=== PATIENT | female | born 1935 | race Caucasian/White ===

== ENCOUNTER 2017-01-06 07:18 | Observation (INO) | payer MEDICARE, OTHER ==
[~2017-01-06] VITALS: Ht 165.1 cm; Wt 70.0 kg
[~2017-01-06 07:18] MED LIST: ATOR20TA42 PO; DIAZ5 PO; DRIS8000 PO; KETO10 PO; LEVO.05 PO; MECL25CH PO; TAB-TAB PO
[2017-01-06 07:41] VITALS: BP 112/64; PULSE 90; RESP 19; TEMP 98.6; O2SAT 89
[2017-01-06] MEDS ORDERED: SODIUM CHLORIDE 0.9% FLUSH 10 ML FLUSH IVF PRN (07:45)
--- NOTE | 2017-01-06 08:00 | RADRPT ---
EXAM DATE/TIME: 01/06/2017 07:44 [facility] COMPARISON: CHEST SINGLE AP, May 17, 2015, 19:11. INDICATIONS : Pain in chest, shoulders and neck for one week MEDICAL HISTORY : None. SURGICAL HISTORY : None. ENCOUNTER: Initial ACUITY: 1 week PAIN SCORE: 5/10 LOCATION: Bilateral chest FINDINGS: The heart is normal in size. The mediastinal contour is within normal limits. There some calcified no roel seen in the paris on the right. In addition, there is a 6 mm calcified granuloma in the right midl lisa. The lungs are otherwise clear. The bony structures demonstrate degenerative changes in the shoul ders bilaterally but are otherwise intact. CONCLUSION: 1. Old, calcified nodes and 6 mm calcified granuloma in the right midlung. No acute abnormality. 2. Degenerative changes in the shoulders bilaterally. Maurice Hernandez MD on January 06, 2017 at 7:57 Board Certified Radiologist. This report was verified electronically.
--- NOTE | 2017-01-06 08:19 | PD ---
HPI Chief Complaint: Pain: Acute or Chronic Time Seen by Provider: 07:42 Travel History International Travel<30 days: No Contact w/Intl Traveler<30days: No Traveled to known affect area: No History of Present Illness HPI 81-year-old female with history of hypothyroidism, presents to the ER today because she has been having bilateral shoulder discomfort, states that it was worse in the left shoulder last night but right now she is having some pain in the right shoulder as well. She feels like it is also radiating up her neck and jaw, and states that she gets nauseous with these symptoms. She denies any shortness of breath, coughing, fevers, or any other symptoms. She does not know exacerbating or alleviating factors. Pain is currently rated as 7 out of 10. Modifying Factors: None Associated Signs & Symptoms: Shoulder pains, neck and jaw pain Risk Factors: Elderly PFSH Past Medical History Arthritis: Yes Blood Disorders: No Anxiety: Yes Cancer: No Cardiovascular Problems: Yes (MVR years ago no recent) High Cholesterol: Yes Diabetes: No Diminished Hearing: No Endocrine: Yes (hypo) Genitourinary: No Immune Disorder: No Musculoskeletal: Yes Neurologic: Yes (Hx cluster headaches) Psychiatric: Yes Reproductive: No Respiratory: No Thyroid Disease: Yes Past Surgical History Gynecologic Surgery: Yes (TAHBSO) Hysterectomy: Yes Neurologic Surgery: Yes (NERVE DESTRUCTION LOWER BACK) Other Surgery: Yes Social History Alcohol Use: Yes (OCCAS) Tobacco Use: No Substance Use: No Allergies-Medications (Allergen,Severity, Reaction): Coded Allergies: Codeine (Verified Allergy, Severe, VOMITING, VERTIGO, 05/17/15) Ambien (Verified Adverse Reaction, Severe, hallucinations, 05/17/15) Reported Meds & Prescriptions Reported Meds & Active Scripts Active Meclizine Hcl (Meclizine HCl) 25 Mg Chw 25 Mg PO Q8H Synthroid (Levothyroxine Sodium) 50 Mcg Tab 50 Mcg PO DAILY@0600 30 Days Diazepam 5 Mg Tab 5 Mg PO Q12H PRN Lipitor 20 Mg Tab (Atorvastatin) 20 Mg Tab 20 Mg PO HS 30 Days Reported Vitamin D (Ergocalciferol) 8,000 Mg/Ml Jennifer 8,000 Units PO Toradol (Ketorolac Tromethamine) 10 Mg Tab 10 Mg PO Q6 *DO NOT EXCEED 40 MG/DAY* *DURATION IS NOT TO EXCEED 5 DAYS* Multivitamin (Multivitamins) 1 Tab Tab 1 Tab PO DAILY Review of Systems Except as stated in HPI: all other systems reviewed are Neg Physical Exam Narrative GENERAL: Elderly white female patient currently in mild distress. Awake and oriented 3. SKIN: Focused skin assessment warm/dry. HEAD: Atraumatic. Normocephalic. EYES: Pupils equal and round. No scleral icterus. No injection or drainage. ENT: No nasal bleeding or discharge. Mucous membranes pink and moist. NECK: Trachea midline. No JVD. CARDIOVASCULAR: Regular rate and rhythm. No murmur appreciated. Pulses are present and equal bilaterally. RESPIRATORY: No accessory muscle use. Clear to auscultation. Breath sounds equal bilaterally. GASTROINTESTINAL: Abdomen soft, non-tender, nondistended. Hepatic and splenic margins not palpable. MUSCULOSKELETAL: No obvious deformities. No clubbing. No cyanosis. No edema. NEUROLOGICAL: Awake and alert. No obvious cranial nerve deficits. Motor grossly within normal limits. Normal speech. PSYCHIATRIC: Appropriate mood and affect; insight and judgment normal. Data Data Last Documented VS Vital Signs Date Time Temp Pulse Resp B/P Pulse Ox O2 Delivery O2 Flow Rate FiO2 01/06/17 07:41 98.6 90 19 112/64 89 Orders Electrocardiogram (01/06/17 07:42) Ckmb (Isoenzyme) Profile (01/06/17 07:42) Complete Blood Count With Diff (01/06/17 07:42) Comprehensive Metabolic Panel (01/06/17 07:42) Magnesium (Mg) (01/06/17 07:42) Prothrombin Time / Inr (Pt) (01/06/17 07:42) Act Partial Throm Time (Ptt) (01/06/17 07:42) Troponin I (01/06/17 07:42) Chest, Single Ap (01/06/17 07:42) Ecg Monitoring (01/06/17 07:42) Bilateral Bp Monitoring (01/06/17 07:42) Iv Access Insert/Monitor (01/06/17 07:42) Oximetry (01/06/17 07:42) Oxygen Administration (01/06/17 07:42) Sodium Chloride 0.9% Flush (Ns Flush) (01/06/17 07:45) Aspirin (Aspirin) (01/06/17 09:15) Morphine Inj (Morphine Inj) (01/06/17 09:15) Ondansetron Inj (Zofran Inj) (01/06/17 09:15) Activity Bed Rest With Brp (01/06/17 09:08) Vital Signs (Adult) Q4H (01/06/17 09:08) Cardiac Rhythm .As Directed (01/06/17 09:08) Notify Dr: Other .PRN (01/06/17 09:08) Notify Dr. Parameters (01/06/17 09:08) Resp Oxygen Nasal Cannula (01/06/17 ) Diet Npo (01/06/17 Breakfast) Ckmb (Isoenzyme) Profile (01/06/17 09:08) Ckmb (Isoenzyme) Profile (01/06/17 12:08) Troponin I (01/06/17 09:08) Troponin I (01/06/17 12:08) Electrocardiogram (01/06/17 12:08) ^ Obtain (01/06/17 09:08) Cta Thor Abd Aorta W Iv C W3d (01/06/17 09:08) Admit Order (Ed Use Only) (01/06/17 09:43) Labs Laboratory Tests Test 01/06/17 07:50 White Blood Count 11.0 TH/MM3 Red Blood Count 4.47 MIL/MM3 Hemoglobin 12.4 GM/DL Hematocrit 37.1 % Mean Corpuscular Volume 83.0 FL Mean Corpuscular Hemoglobin 27.6 PG Mean Corpuscular Hemoglobin 33.3 % Concent Red Cell Distribution Width 14.5 % Platelet Count 340 TH/MM3 Mean Platelet Volume 7.2 FL Neutrophils (%) (Auto) 75.8 % Lymphocytes (%) (Auto) 14.9 % Monocytes (%) (Auto) 7.1 % Eosinophils (%) (Auto) 1.7 % Basophils (%) (Auto) 0.5 % Neutrophils # (Auto) 8.3 TH/MM3 Lymphocytes # (Auto) 1.6 TH/MM3 Monocytes # (Auto) 0.8 TH/MM3 Eosinophils # (Auto) 0.2 TH/MM3 Basophils # (Auto) 0.1 TH/MM3 CBC Comment DIFF FINAL Differential Comment Prothrombin Time 10.3 SEC Prothromb Time International 0.9 RATIO Ratio Activated Partial 25.4 SEC Thromboplast Time Sodium Level 138 MEQ/L Potassium Level 4.2 MEQ/L Chloride Level 102 MEQ/L Carbon Dioxide Level 31.1 MEQ/L Anion Gap 5 MEQ/L Blood Urea Nitrogen 24 MG/DL Creatinine 0.92 MG/DL Estimat Glomerular Filtration 58 ML/MIN Rate Random Glucose 96 MG/DL Calcium Level 9.0 MG/DL Magnesium Level 2.5 MG/DL Total Bilirubin 0.4 MG/DL Aspartate Amino Transf 15 U/L (AST/SGOT) Alanine Aminotransferase 21 U/L (ALT/SGPT) Alkaline Phosphatase 108 U/L Total Creatine Kinase 45 U/L Troponin I LESS THAN 0.02 NG/ML Total Protein 7.2 GM/DL Albumin 3.6 GM/DL MDM Medical Decision Making Medical Screen Exam Complete: Yes Emergency Medical Condition: Yes Medical Record Reviewed: Yes Interpretation(s) EKG shows NSR, no acute ST elevation or depression, and no arrhythmias. No significant T-wave inversions. Laboratory Tests Test 01/06/17 07:50 Neutrophils (%) (Auto) 75.8 % (16.0-70.0) Neutrophils # (Auto) 8.3 TH/MM3 (1.8-7.7) Blood Urea Nitrogen 24 MG/DL (7-18) Estimat Glomerular Filtration 58 ML/MIN (>89) Rate Troponin I LESS THAN 0.02 NG/ML (0.02-0.05) Last 24 hours Impressions Chest X-Ray 01/06/17 0742 Signed Impressions: Service Date/Time: Friday, January 06, 2017 07:44 - CONCLUSION: 1. Old, calcified nodes and 6 mm calcified granuloma in the right midlung. No acute abnormality. 2. Degenerative changes in the shoulders bilaterally. Maurice Hernandez MD Differential Diagnosis Shoulder, jaw and neck pain, nausea, diaphoresisACS versus muscular skeletal versus pneumonia Narrative Course Chest x-ray did not show any signs of acute pulmonary processes, known signs of pneumonia. 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 Her EKG did not show any signs of acute ST-T changes. Lab work and cardiac enzymes are unremarkable. At this point, considering her age and risk factors, I would be concerned about underlying cardiac issues although symptoms could be secondary to shoulder arthritis. CTA did not show any signs of aortic dissection. Patient has been given symptomatic relief or pain and aspirin is given in the ER. My plan would be to admit her to chest pain center for further evaluation. Diagnosis Primary Impression: Atypical chest pain Admitting Information Admitting Physician Requests: Admit Terrie Lake MD Jan 06, 2017 08:18
[2017-01-06 08:21] LABS: AUTOMATED NEUTROPHIL # 8.3 TH/MM3 (1.8-7.7); BASOPHIL # 0.1 TH/MM3 (0-0.2); BASOPHIL % 0.5 % (0.0-2.0); EOSINOPHIL # 0.2 TH/MM3 (0-0.4); EOSINOPHIL % 1.7 % (0.0-4.0); HEMATOCRIT 37.1 % (35.0-46.0); HEMO FLAGS DIFF FINAL; LYMPH % 14.9 % (9.0-44.0); LYMPHOCYTE # 1.6 TH/MM3 (1.0-4.8); MEAN CORPUSCULAR HEMOGLOBIN 27.6 PG (27.0-34.0); MEAN CORPUSCULAR HGB CONC 33.3 % (32.0-36.0); MONO % 7.1 % (0.0-8.0); NEUT % 75.8 % (16.0-70.0); PLATELET COUNT 340 TH/MM3 (150-450); RED BLOOD COUNT 4.47 MIL/MM3 (4.00-5.30); RED CELL DISTRIBUTION WIDTH 14.5 % (11.6-17.2)
[2017-01-06 08:31] LABS: APTT (PATIENT) 25.4 SEC (24.3-30.1); INTERNATIONAL NORMALIZED RATIO 0.9 RATIO; PROTHROMBIN TIME - PATIENT 10.3 SEC (9.8-11.6)
[2017-01-06 08:39] LABS: ALT (GPT) 21 U/L (10-53); AST (GOT) 15 U/L (15-37); BICARBONATE 31.1 MEQ/L (21.0-32.0); BLOOD UREA NITROGEN 24 MG/DL (7-18); GLOMERULAR FILTRATION RATE 58 ML/MIN (>89); MAGNESIUM 2.5 MG/DL (1.5-2.5)
[2017-01-06 08:50] LABS: ALKALINE PHOSPHATASE 108 U/L (45-117); TOTAL BILIRUBIN ADULT 0.4 MG/DL (0.2-1.0)
[2017-01-06 08:54] LABS: CREATINE KINASE 45 U/L (26-192)
[2017-01-06 08:55] LABS: ANION GAP 5 MEQ/L (5-15); CHLORIDE 102 MEQ/L (98-107); POTASSIUM 4.2 MEQ/L (3.5-5.1); SODIUM (NA) 138 MEQ/L (136-145)
[2017-01-06] MEDS ORDERED: MORPHINE SULFATE 4 MG/ML INJ IV PUSH ONE (09:15)
[2017-01-06] MEDS ORDERED: ASPIRIN 325 MG TAB PO ONE (09:15)
[2017-01-06] MEDS ORDERED: ONDANSETRON HCL 4 MG/2 ML VIAL IV PUSH ONE (09:15)
[2017-01-06 10:55] VITALS: BP 112/59; PULSE 90; RESP 18; O2SAT 95
[2017-01-06] MEDS ORDERED: IOHEXOL 350 MG/ML 10 ML VIAL (for RAD DIAG) IV ONE (11:16)
--- NOTE | 2017-01-06 11:44 | RADRPT ---
EXAM DATE/TIME: 01/06/2017 10:34 [facility] COMPARISON: No previous studies available for comparison. INDICATIONS : Aortic Dissection, neck and shoulder pain. IV CONTRAST: 71 cc Omnipaque 350 (iohexol) IV RADIATION DOSE: 16.82 CTDIvol (mGy) MEDICAL HISTORY : Nausea, weakness SURGICAL HISTORY : Hysterectomy. ENCOUNTER: Initial ACUITY: 1 day PAIN SCALE: 3/10 LOCATION: Bilateral neck TECHNIQUE: Volumetric scanning was performed using a multi-row detector CT scanner. The data was post processed with a variety of visualization algorithms including full volume maximum intensity projection, multi -planar sliding thin slab reformation, curved planar reformation, and surface rendering techniques. Using automated exposure control and adjustment of the mA and/or kV according to patient size, radiat ion dose was kept as low as reasonably achievable to obtain optimal diagnostic quality images. FINDINGS: Thoracic/abdominal aorta: The aorta is normal in caliber and course. No aneurysm, dissection, or surrounding fluid. The arch ve ssels, celiac, SMA, renal, and inflow arteries are patent. Heart and mediastinum: The heart is at the upper limits of normal in terms of size. No pericardial effusion. Pulmonary arter ies are normal in caliber. No mass or adenopathy. Lung parenchyma: Bibasilar atelectasis. Other structures: The liver is diffusely low in attenuation. No mass or ductal dilatation. Tiny cortical renal cysts bi laterally. Colonic diverticulosis without acute inflammation. 2 small air bubbles are seen within the urinary bladder lumen. There is no wall thickening. CONCLUSION: 1. No aortic dissection. 2. No acute abnormality. 3. Bibasilar atelectasis. 4. Hepatic steatosis. 5. Colonic diverticulosis. 6. 2 tiny air bubbles within the urinary bladder suggesting prior instrumentation. Infection with gas producing organisms could have a similar appearance. I see no wall thickening of the urinary bladder to suggest infection. Andre Toro Jr., MD on January 06, 2017 at 11:28 Board Certified Radiologist. This report was verified electronically.
[2017-01-06 12:03] LABS: CREATINE KINASE 52 U/L (26-192)
[2017-01-06] MEDS ORDERED: ACETAMINOPHEN/HYDROcodone 325 MG/7.5 MG TAB PO PRN (12:15)
[2017-01-06] MEDS ORDERED: ONDANSETRON HCL 4 MG/2 ML VIAL IV PRN (12:15)
[2017-01-06] MEDS ORDERED: ACETAMINOPHEN 500 MG CPLT PO PRN (12:15)
[2017-01-06] MEDS ORDERED: SODIUM CHLORIDE 0.9% FLUSH 5 ML FLUSH IVF PRN (12:15)
--- NOTE | 2017-01-06 12:34 | HHI.HP ---
[facility] Primary Care Physician Crow Daily MD Chief Complaint Neck pain History of Present Illness This is an 81-year-old female that presents to ED complaining of neck pain that radiates down both sides her neck into her shoulders. This is been going on for 3 days previous constantly there but worsened with certain movements as twisting or turning of her head. Denies weakness in her arms or hands. She states she has chronic back pain and sees a painter aircraft for that but has never had any issues with her neck before. Denies any recent trauma. Denies chest discomfort. Denies shortness of breath, nausea, or diaphoresis. Denies recent illnesses. Has not been coughing and has had no fever. No recent travel. Review of Systems General: Patient denies fevers, chills recent, and recent travel HEENT: Patient denies headache, sore throat, difficulty swallowing. Cardiovascular: Denies chest pain. Denies sensation of heart beating rapidly or irregularly. No syncope. Denies diaphoresis. Respiratory: Denies shortness of breath or inspirational chest discomfort. Denies coughing wheezing or hemoptysis. GI: Patient denies nausea, vomiting, diarrhea, abdominal pain, bloody stools. Musculoskeletal: Complains of neck pain radiates down both shoulders. Also is chronic back pain which she sees a painter aircraft for. Patient denies joint pain or edema. Denies calf pain or edema. Neurovascular: Patient denies numbness, tingling, weakness in extremities. Denies headache. Endocrine: Denies polyuria and polydipsia. Hematologic: Denies easy bruising. Skin: Denies rash or itching. Past Family Social History Allergies: Coded Allergies: Codeine (Verified Allergy, Severe, VOMITING, VERTIGO, 05/17/15) Ambien (Verified Adverse Reaction, Severe, hallucinations, 05/17/15) Past Medical History Hyperlipidemia, hypothyroidism, chronic back pain. Denies hypertension diabetes and known CAD. Past Surgical History Hysterectomy, lumpectomy of her left breast that was benign, total right knee replacement. Reported Medications Reported Meds & Active Scripts Active Meclizine Hcl (Meclizine HCl) 25 Mg Chw 25 Mg PO Q8H Synthroid (Levothyroxine Sodium) 50 Mcg Tab 50 Mcg PO DAILY@0600 30 Days Diazepam 5 Mg Tab 5 Mg PO Q12H PRN Lipitor 20 Mg Tab (Atorvastatin) 20 Mg Tab 20 Mg PO HS 30 Days Reported Vitamin D (Ergocalciferol) 8,000 Mg/Ml Jennifer 8,000 Units PO Toradol (Ketorolac Tromethamine) 10 Mg Tab 10 Mg PO Q6 *DO NOT EXCEED 40 MG/DAY* *DURATION IS NOT TO EXCEED 5 DAYS* Multivitamin (Multivitamins) 1 Tab Tab 1 Tab PO DAILY Active Ordered Medications Current Medications Medications (Trade) Dose Ordered Sig/Shazia Route Start Time Stop Time Status Last Admin (NS Flush) 2 ml UNSCH PRN IVF 01/06/17 07:45 01/06/17 09:25 (NS Flush) 2 ml UNSCH PRN IVF 01/06/17 12:15 UNV (NS Flush) 2 ml BID IVF 01/06/17 21:00 UNV (Tylenol) 500 mg Q4H PRN PO 01/06/17 12:15 UNV ([place] 7.5-325 Mg) 1 tab Q4H PRN PO 01/06/17 12:15 UNV (Zofran Inj) 4 mg Q6H PRN IV 01/06/17 12:15 UNV (Aspirin) 325 mg DAILY PO 01/07/17 09:00 UNV Family History Her father at age 42 of a myocardial infarction. Social History Patient is a nonsmoker. Denies alcohol or illicit drugs. She lives alone but has 2 sons that live close by. Physical Exam Vital Signs Vital Signs Date Time Temp Pulse Resp B/P Pulse Ox O2 Delivery O2 Flow Rate FiO2 01/06/17 10:55 90 18 112/59 95 Room Air 01/06/17 07:41 98.6 90 19 112/64 89 Physical Exam GENERAL: This is a well-nourished, well-developed patient, in no apparent distress. Patient speaks in clear complete sentences. Patient is pleasant. HEENT: Head is atraumatic and normocephalic. Neck is supple without lymphadenopathy and trachea is midline. No JVD or carotid bruits. CARDIOVASCULAR: Regular rate and rhythm without murmurs, gallops, or rubs. RESPIRATORY: Clear to auscultation. Breath sounds equal bilaterally. No wheezes , rales, or rhonchi. Chest wall is nontender. No use of accessory muscles. GASTROINTESTINAL: Abdomen is nontender, nondistended. Abdomen soft. No obvious pulsatile mass or bruit. No CVA tenderness. Strong femoral pulses bilaterally. Normal bowel sounds in all quadrants. MUSCULOSKELETAL: There is pain with flexion-extension of her cervical spine. No spinous processes point tenderness. There there are bilateral paraspinal muscle tenderness along the neck. There is discomfort also with turning the head to left and right. Discomfort also with internal/external rotation of both arms. Bilateral Patient is moving upper and lower extremities freely. No calf tenderness or edema, no Homans sign. Strong pulses in upper and lower extremities. NEUROLOGICAL: Patient is alert and oriented. Cranial nerves 2-12 are grossly intact. No focal deficits and speech is clear. Strong bilateral auto inspector strength. SKIN: No rash and turgor is normal. Laboratory Laboratory Tests Test 01/06/17 01/06/17 07:50 10:56 White Blood Count 11.0 Red Blood Count 4.47 Hemoglobin 12.4 Hematocrit 37.1 Mean Corpuscular Volume 83.0 Mean Corpuscular Hemoglobin 27.6 Mean Corpuscular Hemoglobin 33.3 Concent Red Cell Distribution Width 14.5 Platelet Count 340 Mean Platelet Volume 7.2 Neutrophils (%) (Auto) 75.8 Lymphocytes (%) (Auto) 14.9 Monocytes (%) (Auto) 7.1 Eosinophils (%) (Auto) 1.7 Basophils (%) (Auto) 0.5 Neutrophils # (Auto) 8.3 Lymphocytes # (Auto) 1.6 Monocytes # (Auto) 0.8 Eosinophils # (Auto) 0.2 Basophils # (Auto) 0.1 CBC Comment DIFF FINAL Differential Comment Prothrombin Time 10.3 Prothromb Time International 0.9 Ratio Activated Partial 25.4 Thromboplast Time Sodium Level 138 Potassium Level 4.2 Chloride Level 102 Carbon Dioxide Level 31.1 Anion Gap 5 Blood Urea Nitrogen 24 Creatinine 0.92 Estimat Glomerular Filtration 58 Rate Random Glucose 96 Calcium Level 9.0 Magnesium Level 2.5 Total Bilirubin 0.4 Aspartate Amino Transf 15 (AST/SGOT) Alanine Aminotransferase 21 (ALT/SGPT) Alkaline Phosphatase 108 Total Creatine Kinase 45 52 Troponin I LESS THAN 0.02 LESS THAN 0.02 Total Protein 7.2 Albumin 3.6 Result Diagram: 01/06/17 0750 01/06/17 0750 Imaging Last 48 hours Impressions Aorta CTA 01/06/17 0941 Signed Impressions: Service Date/Time: Friday, January 06, 2017 10:34 - CONCLUSION: 1. No aortic dissection. 2. No acute abnormality. 3. Bibasilar atelectasis. 4. Hepatic steatosis. 5. Colonic diverticulosis. 6. 2 tiny air bubbles within the urinary bladder suggesting prior instrumentation. Infection with gas producing organisms could have a similar appearance. I see no wall thickening of the urinary bladder to suggest infection. Andre Toro Jr., MD Chest X-Ray 01/06/17 0742 Signed Impressions: Service Date/Time: Friday, January 06, 2017 07:44 - CONCLUSION: 1. Old, calcified nodes and 6 mm calcified granuloma in the right midlung. No acute abnormality. 2. Degenerative changes in the shoulders bilaterally. Maurice Hernandez MD Course Initial EKG has sinus rhythm without significant ST segment depressions or elevations. There is borderline first-degree AV block. Assessment and Plan Assessment and Plan * Neck pain: Patient was admitted to the chest pain center to evaluate possible cardiac causes of her neck discomfort. Her neck discomfort is reproducible with range of motion and palpating the area. She will have serial cardiac enzymes and EKGs for ruling out purposes and will be seen by Dr. Bullock of cardiology in the chest pain center. We will get a CT of the C-spine without IV contrast. * Hypothyroidism: Continue current medication. * Hyperlipidemia: Continue current medication. Patient is stable at this time. She is agreeable to this plan. Emerson Weaver Jan 06, 2017 12:33
--- NOTE | 2017-01-06 13:33 | RADRPT ---
EXAM DATE/TIME: 01/06/2017 13:05 [facility] COMPARISON: CTA THORACIC ABDOMINAL AORTA W 3D RECON, January 06, 2017, 10:34. INDICATIONS : Neck pain radiating down to both shoulders. RADIATION DOSE: 31.66 CTDIvol (mGy) MEDICAL HISTORY : Cardiovascular disease. SURGICAL HISTORY : Hysterectomy. ENCOUNTER: Initial ACUITY: 3 days PAIN SCALE: 6/10 LOCATION: Bilateral neck TECHNIQUE: Volumetric scanning of the cervical spine was performed. Multiplanar reconstructions in the sagittal, coronal and oblique axial planes were performed. Using automated exposure control and adjustment o f the mA and/or kV according to patient size, radiation dose was kept as low as reasonably achievable to obtain optimal diagnostic quality images. FINDINGS: Thin section axial imaging of the cervical spine was performed. Sagittal and coronal imaging demonstrate straightening of the normal cervical curve. Degenerated disc s throughout the mid cervical spine. No acute fracture is seen. C1/2: No acute bony abnormality identified. C2/3: The thecal space is adequate. The neural foramina are adequate. No significant abnormality is identif ied. C3/4: There is a degenerated disc. There is mild osteophytic ridging from the vertebral endplates and facet arthritis bilaterally. The thecal space and foramina appear adequate. C4/5: There is a degenerated disc. There is osteophytic ridging from the vertebral end plates which just ef faces the ventral thecal sac. There is mild encroachment of uncovertebral osteophyte on the lateral r ecess bilaterally. The foramina are adequate. There is mild facet arthritis bilaterally. C5/6: There is a degenerated disc with osteophytic ridging from the vertebral endplates. There is mild bony foraminal narrowing on the left. There is mild facet arthritis bilaterally. The residual thecal spac e appears adequate. C6/7: There is a degenerated disc. There is mild osteophytic ridging towards the left. There is mild narrow ing of lateral recess and the foramen on the left. There is mild facet arthritis bilaterally. The res idual thecal space is adequate. C7/T1: The thecal space is adequate. The neural foramina are adequate. No significant abnormality is identif ied. CONCLUSION: Degenerative changes within the cervical spine as above. No acute fracture is seen. The most signific ant abnormalities are at C4/5 and C5/6. Maurice Hernandez MD on January 06, 2017 at 13:27 Board Certified Radiologist. This report was verified electronically.
[2017-01-06 14:34] LABS: CREATINE KINASE 46 U/L (26-192)
--- NOTE | 2017-01-06 16:12 | EKG ---
Date Performed: 01/06/2017 Time Performed: 14:03:17 PTAGE: 81 years EKG: Sinus rhythm WITH FIRST DEGREE AV BLOCK BORDERLINE LEFT AXIS DEVIATION ABNORMAL ECG Since PREVIOUS TRACING , no significant change noted PREVIOUS TRACIN01/06/2017 11.03 DOCTOR: Katja Bullock Interpretating Date/Time 01/06/2017 16:10:26
--- NOTE | 2017-01-06 16:14 | EKG ---
Date Performed: 01/06/2017 Time Performed: 11:03:30 PTAGE: 81 years EKG: Sinus rhythm WITH FIRST DEGREE AV BLOCK BORDERLINE LEFT AXIS DEVIATION ABNORMAL ECG Since PREVIOUS TRACING , no significant change noted PREVIOUS TRACIN01/06/2017 07.46 DOCTOR: Katja Bullock Interpretating Date/Time 01/06/2017 16:14:04
--- NOTE | 2017-01-06 16:17 | EKG ---
Date Performed: 01/06/2017 Time Performed: 07:46:55 PTAGE: 81 years EKG: Sinus rhythm MARKED LEFT AXIS DEVIATION MINIMAL VOLTAGE CRITERIA FOR LVH, CONSIDER NORMAL VARIANT ABNORMAL ECG Si nce PREVIOUS TRACING , no significant change noted PREVIOUS TRACIN05/17/2015 18.01 DOCTOR: Katja Bullock Interpretating Date/Time 01/06/2017 16:15:33
--- NOTE | 2017-01-06 16:53 | HHI.DCPOC ---
Discharge Care Plan Diagnosis: (1) Neck pain (2) Radiculopathy of cervical spine (3) Hyperlipidemia Goals to Promote Your Health * To prevent worsening of your condition and complications * To maintain your health at the optimal level Directions to Meet Your Goals Take your medications as prescribed Follow your dietary instruction Follow activity as directed Keep your appointments as scheduled Take your immunizations and boosters as scheduled If your symptoms worsen call your PCP, if no PCP go to Urgent Care Center or Emergency Room Smoking is Dangerous to Your Health. Avoid second hand smoke Call the 24-hour hour crisis hotline for domestic abuse at Emerson Weaver Jan 06, 2017 16:53
[2017-01-06] MEDS ORDERED: DIAZEPAM 5 MG TAB PO PRN (17:00)
[2017-01-06] MEDS ORDERED: MECLIZINE HCL 25 MG PO SCH (17:00)
[2017-01-06] MEDS ORDERED: ATORVASTATIN 20 MG TAB PO SCH (21:00)
[2017-01-06] MEDS ORDERED: SODIUM CHLORIDE 0.9% FLUSH 5 ML FLUSH IVF SCH (21:00)
[2017-01-07] MEDS ORDERED: LEVOTHYROXINE SODIUM 50 MCG TAB PO SCH (06:00)
[2017-01-07] MEDS ORDERED: ASPIRIN 325 MG TAB PO SCH (09:00)
[2017-01-07] MEDS ORDERED: MULTIVITAMIN TAB PO SCH (09:00)
== END 2017-01-06 17:25 | disposition home or self-care (01) ==
LOC: NEPC 07:18 → NEDA 09:45 → NEPHCDU 12:20
PROVIDERS: ADMIT Internal Medicine Interventional Cardiology; ATTEND Internal Medicine Interventional Cardiology
DX: M54.2 Cervicalgia (principal); G89.29 Other chronic pain; M54.9 Dorsalgia, unspecified; E78.5 Hyperlipidemia, unspecified; E03.9 Hypothyroidism, unspecified; E78.00 Pure hypercholesterolemia, unspecified; M19.019 Primary osteoarthritis, unspecified shoulder; F41.9 Anxiety disorder, unspecified; Z96.651 Presence of right artificial knee joint; Z88.1 Allergy status to other antibiotic agents; Z88.8 Allergy status to other drugs, medicaments and biological substances
CPT/HCPCS: 71010; 71275; 72125; 74174; 80053; 82550; 83735; 84484; 85025; 85610; 85730; 93005; 96374; 96375; 99285; G0378; J2270; J2405; Q9967

== ENCOUNTER 2017-03-28 11:50 | Emergency (ER) | payer MEDICARE, OTHER ==
[~2017-03-28] VITALS: Ht 162.6 cm; Wt 75.0 kg
[~2017-03-28 11:50] MED LIST changes: -KETO10 PO
[2017-03-28 11:55] VITALS: BP 79/52; PULSE 97; RESP 24; TEMP 97.4; O2SAT 95
[2017-03-28 12:01] VITALS: BP 134/63; PULSE 85; RESP 22; TEMP 97.5; O2SAT 96
[2017-03-28 12:05] VITALS: BP_SYST 100; BP_SYST 106; BP_SYST 134; BP_DIAS 58; BP_DIAS 59; BP_DIAS 63
[2017-03-28] MEDS ORDERED: SODIUM CHLOR 0.9% 1000 ML INJ 1,000 ML IV SCH (12:06)
--- NOTE | 2017-03-28 12:21 | PD ---
HPI Chief Complaint: Abnormal Results Time Seen by Provider: 12:02 Travel History International Travel<30 days: No Contact w/Intl Traveler<30days: No Traveled to known affect area: No History of Present Illness HPI 81-year-old female that presents to the ED for evaluation of pain to her left arm. Per patient she broke it about a week ago and she had a cast put in place by Dr. Gerber this week. Per patient she notes she was brought until she went to see Dr. Gerber. She states that ever since the cast she's actually been doing okay but for the past to treat a she's been developing more pain. She called her physician today as the pain got more severe and she was concerned to the cast is too tight. She cannot again and says that she came here to get evaluated. She also reports that today she's been feeling somewhat weak. Initially she was seen by triage and she was found to have hypotension and she was brought to the room immediately. Patient reports that she takes no blood pressure medications but she did took a hydrocodone today. The patient her pain currently 7 out of 10. She is able to move all fingers. She denies any new injury or trauma. She does state having some tingling sensation to the thumb and the first digit. She states that she has a fracture to her wrist but she doesn't know what type. She denies any fevers chills or sweats. No chest pain or shortness of breath. No headache. PFSH Past Medical History Arthritis: Yes Blood Disorders: No Anxiety: Yes Heart Rhythm Problems: No Cancer: No Cardiac Catheterization: No Cardiovascular Problems: Yes (MVP) High Cholesterol: Yes Congestive Heart Failure: No Diabetes: Yes (TYPE II ) Patient Takes Glucophage: Yes (METFORMIN) Diminished Hearing: No Endocrine: Yes (hypo) Genitourinary: No Immune Disorder: No Musculoskeletal: Yes Neurologic: Yes (Hx cluster headaches) Psychiatric: Yes Reproductive: No Respiratory: No Thyroid Disease: Yes ?: Not Past Surgical History Coronary Artery Bypass Graft: No Gynecologic Surgery: Yes (TAHBSO) Hysterectomy: Yes Neurologic Surgery: Yes (NERVE DESTRUCTION LOWER BACK) Other Surgery: Yes Family History Family Myocardial Infarction: Yes (FATHER, AGE 42 ) Social History Alcohol Use: Yes (OCCAS) Tobacco Use: No Substance Use: No Allergies-Medications (Allergen,Severity, Reaction): Coded Allergies: codeine (Unverified Allergy, Severe, VOMITING, VERTIGO, 03/28/17) zolpidem (Unverified Adverse Reaction, Severe, hallucinations, 03/28/17) Reported Meds & Prescriptions Reported Meds & Active Scripts Active Keflex (Cephalexin) 500 Mg Cap 500 Mg PO Q12H 10 Days Lortab (Hydrocodone-Acetaminophen) 5-325 Mg Tab 1 Tab PO Q6H PRN 14 Days Meclizine Hcl (Meclizine HCl) 25 Mg Chw 25 Mg PO Q8H Synthroid (Levothyroxine Sodium) 50 Mcg Tab 50 Mcg PO DAILY@0600 30 Days Diazepam 5 Mg Tab 5 Mg PO Q12H PRN Lipitor 20 Mg Tab (Atorvastatin) 20 Mg Tab 20 Mg PO HS 30 Days Reported Vitamin D (Ergocalciferol) 8,000 Mg/Ml Jennifer 8,000 Units PO Multivitamin (Multivitamins) 1 Tab Tab 1 Tab PO DAILY Review of Systems Except as stated in HPI: all other systems reviewed are Neg Physical Exam Narrative GENERAL: SKIN: Warm and dry. HEAD: Atraumatic. Normocephalic. EYES: Pupils equal and round. No scleral icterus. No injection or drainage. ENT: No nasal bleeding or discharge. Mucous membranes pink and moist. Tongue is midline. No uvula deviation. NECK: Trachea midline. No JVD. CARDIOVASCULAR: Regular rate and rhythm. No murmurs, S3, S4. RESPIRATORY: No accessory muscle use. Clear to auscultation. Breath sounds equal bilaterally. GASTROINTESTINAL: Abdomen soft, non-tender, nondistended. Hepatic and splenic margins not palpable. MUSCULOSKELETAL: Extremities without clubbing, cyanosis, or edema. No obvious deformities. Full range of motion of the upper and lower extremities bilaterally. 2+ pulses bilaterally. NEUROLOGICAL: Awake and alert. No obvious cranial nerve deficits. Motor grossly within normal limits. Five out of 5 muscle strength in the arms and legs. Normal speech. PSYCHIATRIC: Appropriate mood and affect; insight and judgment normal. Data Data Last Documented VS Vital Signs Date Time Temp Pulse Resp B/P (MAP) Pulse Ox O2 Delivery O2 Flow Rate FiO2 03/28/17 14:07 97 20 137/70 (92) 93 Room Air 03/28/17 12:01 97.5 Orders Orders Electrocardiogram (03/28/17 12:06) Complete Blood Count With Diff (03/28/17 12:06) Basic Metabolic Panel (Bmp) (03/28/17 12:06) Magnesium (Mg) (03/28/17 12:06) Iv Access Insert/Monitor (03/28/17 12:06) Sodium Chlor 0.9% 1000 Ml Inj (Ns 1000 M (03/28/17 12:06) Wrist, Limited (Ap&Lat) (03/28/17 ) Splint Or Brace Apply/Monitor (03/28/17 12:11) Orthostatic Vital Signs (03/28/17 12:12) Ckmb (Isoenzyme) Profile (03/28/17 12:12) Troponin I (03/28/17 12:12) Chest, Single Ap (03/28/17 ) Acetamin-Hydrocod 325-5 Mg ([place] 5-325 (03/28/17 13:00) Urinalysis - C+S If Indicated (03/28/17 12:51) Ondansetron Inj (Zofran Inj) (03/28/17 13:15) Urine Culture (03/28/17 13:45) Cephalexin (Keflex) (03/28/17 14:30) Labs Laboratory Tests Test 03/28/17 12:10 03/28/17 13:45 White Blood Count 15.3 TH/MM3 Red Blood Count 4.75 MIL/MM3 Hemoglobin 12.8 GM/DL Hematocrit 40.3 % Mean Corpuscular Volume 84.8 FL Mean Corpuscular Hemoglobin 27.0 PG Mean Corpuscular Hemoglobin Concent 31.8 % Red Cell Distribution Width 15.7 % Platelet Count 449 TH/MM3 Mean Platelet Volume 6.5 FL Neutrophils (%) (Auto) 75.4 % Lymphocytes (%) (Auto) 16.6 % Monocytes (%) (Auto) 6.6 % Eosinophils (%) (Auto) 0.8 % Basophils (%) (Auto) 0.6 % Neutrophils # (Auto) 11.5 TH/MM3 Lymphocytes # (Auto) 2.5 TH/MM3 Monocytes # (Auto) 1.0 TH/MM3 Eosinophils # (Auto) 0.1 TH/MM3 Basophils # (Auto) 0.1 TH/MM3 CBC Comment DIFF FINAL Differential Comment Blood Urea Nitrogen 24 MG/DL Creatinine 0.95 MG/DL Random Glucose 101 MG/DL Calcium Level 9.8 MG/DL Magnesium Level 2.0 MG/DL Sodium Level 139 MEQ/L Potassium Level 3.7 MEQ/L Chloride Level 103 MEQ/L Carbon Dioxide Level 25.4 MEQ/L Anion Gap 11 MEQ/L Estimat Glomerular Filtration Rate 56 ML/MIN Total Creatine Kinase 55 U/L Troponin I LESS THAN 0.02 NG/ML Urine Color YELLOW Urine Turbidity HAZY Urine pH 6.5 Urine Specific [place] 1.024 Urine Protein 30 mg/dL Urine Glucose (UA) NEG mg/dL Urine Ketones NEG mg/dL Urine Occult Blood NEG Urine Nitrite POS Urine Bilirubin NEG Urine Urobilinogen LESS THAN 2.0 MG/DL Urine Leukocyte Esterase LARGE Urine RBC 6 /hpf Urine WBC 26 /hpf Urine Squamous Epithelial Cells 4 /hpf Urine Calcium Oxalate Crystals OCC /hpf Urine Bacteria OCC /hpf Urine Hyaline Casts 37 /lpf Urine Mucus MANY /lpf Microscopic Urinalysis Comment CULTURE INDICATED MDM Medical Decision Making Medical Screen Exam Complete: Yes Emergency Medical Condition: Yes Medical Record Reviewed: Yes Interpretation(s) CBC & BMP Diagram 03/28/17 12:10 Calcium Level 9.8, Magnesium Level 2.0 EKG shows sinus rhythm with no sign of acute ischemia or arrhythmia but by me and attending. Troponin and CK-MB negative. Last Impressions Wrist X-Ray 03/28/17 0000 Signed Impressions: Service Date/Time: Tuesday, March 28, 2017 12:21 - CONCLUSION: Severe degenerative changes identified within the first digit carpometacarpal joint. No fracture is visualized lung bases. Brandie Villagomez MD Chest X-Ray 03/28/17 0000 Signed Impressions: Service Date/Time: Tuesday, March 28, 2017 12:46 - CONCLUSION: Normal examination. Brandie Villagomez MD UA shows UTI. Differential Diagnosis Cast removal versus weakness versus orthostatic hypotension versus hypotension versus bleed versus weakness versus acute on chronic pain versus fracture pain Narrative Course 81-year-old female that presents to the ED for evaluation of pain to the left wrist as well as weakness. Patient was properly examined and was found to have signs and symptoms consistent appears to be the calves been a little bit too tight. We will remove it at this time. Call was placed to Dr. Gerber. Of note patient was found to be hypotensive here and she appears to be symptomatic with standing. Orthostatics were done and were positive at 30 point drop. In July, labs and imaging to make sure patient doesn't have anything acute. She will be given IV fluids as well. I suspect he might have something to do with the Lortab. Labs were drawn and came back essentially unremarkable except for limited rubbles account. Chest x-ray was negative. Urine did show signs of infection so we'll treat with Keflex. She was given the first dose here and given a prescription for this.. Patient did have positive orthostatics otherwise feels better. After 1 L of fluid patient feels improved. Patient was given Lortab here for her pain and her cast was removed by [facility] who apply a splint. Patient did have good pulses and sensation and there is no sign of carpal tunnel. I suspect the most of her discomfort is because of the tightness of the cast. Case discussed with my attending Dr Finney who agrees that patient can be discharged with instructions to follow up with PCP and ortho. She agrees with this. See ED if worsening symptoms. Diagnosis Primary Impression: Cast discomfort Additional Impressions: Pre-syncope Orthostatic hypotension UTI (lower urinary tract infection) Referrals: Aviva Gerber MD Patient Instructions: General Instructions, Narcotic given in the ED Additional Instructions: Drink plenty of fluids. Follow with PCP. See ED for any worsening symptoms. Follow with orthopedic doctor this week to get a new cast. Med/Other Pt SpecificInfo: Prescription(s) given Scripts Cephalexin (Keflex) 500 Mg Cap 500 MG PO Q12H for Infection for 10 Days, CAP 0 Refills Prov: Genet Uribe MD 03/28/17 Hydrocodone-Acetaminophen (Lortab) 5-325 Mg Tab 1 TAB PO Q6H Y for PAIN for 14 Days, #14 TAB 0 Refills Prov: Genet Uribe MD 03/28/17 Disposition: 01 DISCHARGE HOME Condition: Stable Joao Vasquez Mar 28, 2017 12:21
--- NOTE | 2017-03-28 12:28 | RADRPT ---
EXAM DATE/TIME: 03/28/2017 12:21 [facility] COMPARISON: No previous studies available for comparison. INDICATIONS : Left wrist pain. Fractured wrist a few days ago. Pain near first digit. MEDICAL HISTORY : None. SURGICAL HISTORY : None. ENCOUNTER: Initial ACUITY: 3 days PAIN SCORE: 10/10 LOCATION: Left wrist. FINDINGS: AP and lateral views of the left wrist are obtained in cast material. There are severe degenerative c hanges identified at the first digit carpometacarpal joint. No fracture is visualized on these views. The bones appear normal in mineralization. CONCLUSION: Severe degenerative changes identified within the first digit carpometacarpal joint. No fracture is v isualized lung bases. Brandie Villagomez MD on March 28, 2017 at 12:25 Board Certified Radiologist. This report was verified electronically.
[2017-03-28 12:43] LABS: AUTOMATED NEUTROPHIL # 11.5 TH/MM3 (1.8-7.7); BASOPHIL # 0.1 TH/MM3 (0-0.2); BASOPHIL % 0.6 % (0.0-2.0); EOSINOPHIL # 0.1 TH/MM3 (0-0.4); EOSINOPHIL % 0.8 % (0.0-4.0); HEMATOCRIT 40.3 % (35.0-46.0); HEMO FLAGS DIFF FINAL; LYMPH % 16.6 % (9.0-44.0); LYMPHOCYTE # 2.5 TH/MM3 (1.0-4.8); MEAN CELL VOLUME 84.8 FL (80.0-100.0); MEAN CORPUSCULAR HGB CONC 31.8 % (32.0-36.0); MONO % 6.6 % (0.0-8.0); NEUT % 75.4 % (16.0-70.0); PLATELET COUNT 449 TH/MM3 (150-450); RED BLOOD COUNT 4.75 MIL/MM3 (4.00-5.30); RED CELL DISTRIBUTION WIDTH 15.7 % (11.6-17.2); WHITE BLOOD COUNT 15.3 TH/MM3 (4.0-11.0)
[2017-03-28] MEDS ORDERED: ACETAMINOPHEN/HYDROcodone 325 MG/5 MG TAB PO ONE (13:00)
[2017-03-28 13:08] LABS: BICARBONATE 25.4 MEQ/L (21.0-32.0); POTASSIUM 3.7 MEQ/L (3.5-5.1)
--- NOTE | 2017-03-28 13:14 | RADRPT ---
EXAM DATE/TIME: 03/28/2017 12:46 [facility] COMPARISON: CHEST SINGLE AP, January 06, 2017, 7:44. INDICATIONS : Syncopal episode, short of breath MEDICAL HISTORY : None. SURGICAL HISTORY : None. ENCOUNTER: Initial ACUITY: 1 day PAIN SCORE: 0/10 LOCATION: Bilateral chest FINDINGS: A single view of the chest demonstrates the lungs to be symmetrically aerated without evidence of mas s, infiltrate or effusion. The cardiomediastinal contours are unremarkable. Osseous structures are intact. CONCLUSION: Normal examination. Brandie Villagomez MD on March 28, 2017 at 13:12 Board Certified Radiologist. This report was verified electronically.
[2017-03-28] MEDS ORDERED: ONDANSETRON HCL 4 MG/2 ML VIAL IV PUSH ONE (13:15)
[2017-03-28 13:19] LABS: CREATINE KINASE 55 U/L (26-192)
[2017-03-28 14:07] VITALS: BP 137/70; PULSE 97; RESP 20; O2SAT 93
[2017-03-28 14:23] LABS: BACTERIA, URINE OCC /hpf; BLOOD, URINE NEG (NEG); CALCIUM OXALATE CRYSTALS,URINE OCC /hpf; COMMENT (UR) CULTURE INDICATED; CULTURE IF INDICATED CULTURE INDICATED; GLUCOSE,URINE NEG (NEG); HYALINE CAST, URINE 37 /lpf (RARE); KETONE, URINE NEG (NEG); MUCUS URINE MANY /lpf (OCC); NITRITE,URINE POS (NEG); PH, URINE 6.5 (5.0-8.5); SQUAMOUS EPITHELIAL CELL URINE 4 /hpf (0-5); URINE COLOR YELLOW (YELLW/STRAW)
[2017-03-28] MEDS ORDERED: CEPH-460 PO (14:29)
[2017-03-28] MEDS ORDERED: HYDR-3533 PO (14:29)
[2017-03-28] MEDS ORDERED: CEPHALEXIN MONOHYDRATE 500 MG CAP PO ONE (14:30)
--- NOTE | 2017-03-28 15:15 | EKG ---
Date Performed: 03/28/2017 Time Performed: 12:07:13 PTAGE: 81 years EKG: Sinus rhythm MARKED LEFT AXIS DEVIATION LAFB MODERATE VOLTAGE CRITERIA FOR LVH, CONSIDER NORMAL VARIANT ABNORMAL ECG PREVIOUS TRACING : 01/06/2017 14.03 Compared to prior tracing no significant change DOCTOR: Vicky Womack Interpretating Date/Time 03/28/2017 15:13:54
== END 2017-03-28 15:55 | disposition home or self-care (01) ==
LOC: NEPE 11:50
DX: M25.532 Pain in left wrist (principal); R55 Syncope and collapse; I95.1 Orthostatic hypotension; N39.0 Urinary tract infection, site not specified; B96.1 Klebsiella pneumoniae [K. pneumoniae] as the cause of diseases classified elsewhere; R94.31 Abnormal electrocardiogram [ECG] [EKG]; R20.2 Paresthesia of skin; E11.9 Type 2 diabetes mellitus without complications; E07.9 Disorder of thyroid, unspecified; E78.00 Pure hypercholesterolemia, unspecified; Z47.89 Encounter for other orthopedic aftercare; Z87.39 Personal history of other diseases of the musculoskeletal system and connective tissue; Z86.59 Personal history of other mental and behavioral disorders; Z86.79 Personal history of other diseases of the circulatory system; Z86.69 Personal history of other diseases of the nervous system and sense organs
CPT/HCPCS: 29125; 71010; 73100; 80048; 81001; 82550; 83735; 84484; 85025; 87077; 87086; 87186; 93005; 96361; 96374; 99285; J2405; J7030